=== PATIENT | female | born 1945 | race Caucasian/White ===

== ENCOUNTER 2018-08-05 23:34 | Inpatient (IN) | payer MEDICARE, OTHER ==
--- NOTE | ~2018-08-05 | DS ---
PATIENT:GEN SIMPSON :47 MEDICAL RECORD: [id number] DISCHARGE SUMMARY ADMISSION DATE: 08/05/18 DISCHARGE DATE: 08/09/18 IDENTIFYING DATA: The patient is 72 years old and she was admitted to the hospital on a voluntary basis because of depression. The patient has a known history of depression and has been depressed for a long time. She endorses numerous neurovegetative depressive symptoms. She has also been drinking excessively and tends to minimize this. She was actually arrested for DWI a few weeks ago. Her also a couple of weeks ago. She apparently took an cjpw-shj-zlvgsuk sleep aid that was nonprescription and thought it would hurt her. She had been drinking at that time. She ended up in the Emergency Room at [facility] and endorsed suicidal thoughts. She was subsequently transitioned here for treatment. HOSPITAL COURSE: The patient was admitted to the hospital and evaluated from both a medical, psychological, and social standpoint. She denied suicidal thoughts upon admission and indicated that she had only done what she had done and said what she had said because she had been drinking. She did endorse a lot of depressive symptoms. She was observed for alcohol withdrawal symptoms and did not have any. She was offered inpatient and/or outpatient alcohol treatment and refused it. She was given antidepressant medication and showed some improvement that probably was not related to the medication since it had not had time to become effective, but for whatever reason, probably that she is in a structured environment and is not drinking her mood did improve. At her request, she was subsequently discharged from the hospital since she did not meet criteria for an involuntary hold. DISCHARGE DIAGNOSES: AXIS I: 1. Major depression, severe, recurrent without psychotic features. 2. Alcohol abuse. AXIS II: Deferred. AXIS III: None. AXIS IV: Moderate stressors. AXIS V: Global assessment of functioning is 50. PLAN: At the time of discharge, the patient was referred to a geriatric counseling program at [facility]. This is an outpatient program that takes place several afternoons a week and has intensive group therapy. She is wanting to do this. I think her prognosis is good if she refrains from drinking, which she says she will do. Her prognosis is bad if she returns to drinking. Again, she was offered outpatient or inpatient substance abuse treatment, she refused. She did not show evidence of alcohol withdrawal when she was discharged. TRANSINT:[id number] Voice Confirmation ID: [id number] DOCUMENT ID: [id number] DISCHARGE SUMMARY REPORT [id number] GEN SIMPSON, ANA MENCHACA at 1435 CC: [id number] DICTATION DATE: 08/11/18 1347 NEWSPAPER COLUMNIST: 08/11/18 1357 DIS IN 08/09/18 [place] [id number] [place] [id number]
--- NOTE | ~2018-08-05 | PN ---
PATIENT:GEN SIMPSON MEDICAL RECORD: [id number] LOCATION:AMADEO AbdiJus113 ADMISSION DATE: 08/05/18 PROGRESS NOTE DATE OF SERVICE: 08/09/2018 SUBJECTIVE: The patient's case was discussed with staff. She has no new complaint. OBJECTIVE: The patient is in good behavioral control. She has no thoughts of harming herself or others. She is tolerating her medicines well. I discussed with her the need for outpatient followup and she has been referred to the [facility] treatment program. ASSESSMENT: No change in diagnoses. PLAN: The patient was probably discharged earlier today. Follow up is going to be with her primary care doctor and the outpatient counseling program. She has no problems with the medicine she is taking and is showing no evidence of alcohol withdrawal. I think her outcome is going to be tied to alcohol abstinence. TRANSINT:[id number] Voice Confirmation ID: [id number] DOCUMENT ID: [id number] ANA MEJIA MD at 1234 CC: [id number] DICTATION DATE: 08/09/181917 DAIRY HELPER: 08/09/18 2016 DIS IN 08/09/18 [facility] [address] [place] [address]
--- NOTE | ~2018-08-05 | PN ---
PATIENT:GEN SIMPSON MEDICAL RECORD: [id number] LOCATION:AMADEO Hilario113 ADMISSION DATE: 08/05/18 PROGRESS NOTE DATE OF SERVICE: 08/07/2018 SUBJECTIVE: The patient's case was discussed with staff. She has no new complaint. OBJECTIVE: The patient slept well and has no thoughts of harming herself. She has a very depressed mood and she has responded well to the initial dose of Effexor and Klonopin. She does not appear over sedated nor does she have any alcohol withdrawal symptoms. Today, she is minimizing her alcohol use. ASSESSMENT: No change in diagnoses. PLAN: Supportive and educational interventions were made. I will maintain her current medicines today. I have asked her to consider outpatient geriatric counseling. TRANSINT:[id number] Voice Confirmation ID: [id number] DOCUMENT ID: [id number] ANA MEJIA MD at 1326 CC: [id number] DICTATION DATE: 08/07/18 1257 STERILE PROCESSING TECH: 08/07/18 1315 ADM IN [place] [id number] [place] [id number]
--- NOTE | ~2018-08-05 | PN ---
PATIENT:GEN SIMPSON MEDICAL RECORD: [id number] LOCATION:AMADEO AbdiJus113 ADMISSION DATE: 08/05/18 PROGRESS NOTE DATE OF SERVICE: 08/08/2018 SUBJECTIVE: The patient's case was discussed with staff. She has no new complaint. OBJECTIVE: The patient ate well and slept reasonably well last night. She is showing no evidence of alcohol withdrawal. She is tolerating her Effexor reasonably well. ASSESSMENT: No change in diagnoses. PLAN: Current medicines and therapies have been reviewed and will be maintained. I am going to increase the dose of the patient's Effexor to 50 mg twice daily. I am going to stop her Klonopin and we will monitor her for any withdrawal symptoms. If none are present, I anticipate she can be transitioned out of the hospital tomorrow. TRANSINT:[id number] Voice Confirmation ID: [id number] DOCUMENT ID: [id number] ANA MEJIA MD at 1329 CC: [id number] DICTATION DATE: 08/08/18 1446 AUTOMATIC TOE LASTER: 08/08/18 1451 ADM IN [facility] [address] [place] [address]
--- NOTE | ~2018-08-05 | PSY ---
PATIENT NAME:GEN SIMPSON MEDICAL RECORD: [id number] : 47 LOCATION:[place] [place] ADMISSION DATE: 08/05/18 ACCOUNT: [id number] PSYCHIATRIC EVALUATION DATE OF EVALUATION: 08/06/18 IDENTIFYING DATA: The patient is 72 years old and she is admitted to the hospital on a voluntary basis. CHIEF COMPLAINT: Depression. HISTORY OF PRESENT ILLNESS: The patient is a depressed woman. She has been depressed a long time. She has been unhappy, has felt helpless, hopeless, isolated and withdrawn. She has a loss of interest in usual activities. She has been drinking excessively, which she describes as a fifth of vodka or some other alcohol concentrated weekly. She has an arrest for a DWI few weeks ago and her 2 weeks ago. The patient indicates that she was very unhappy yesterday, wanted to or at least as she puts it go to sleep and not wake up and so she took 8 vckh-vst-auklfmv sleeping pills, which were primarily an antihistamine. She had also been drinking with them. In her mind, she thought that this would be potentially lethal dose, but shortly after taking it, she became afraid and called 911 and was taken to the Emergency Room at [facility]. In her mind, alcohol and a sleep aid, that is only antihistamine, was potentially dangerous, that is why she became afraid and called. So, even though that was not a truly dangerous thing to do, she was frightened enough and felt that she had potentially taken something that was lethal. She was evaluated there neurologically, medically and transferred to us for psychiatric evaluation and treatment. The patient has no thoughts of harming herself today. She denies psychotic symptoms. She acknowledges that she drinks too much. PAST MEDICAL HISTORY: Relatively clean for this elderly woman who has some osteoarthritis, but no chronic medical problems. PAST PSYCHIATRIC HISTORY: Significant for longstanding abuse of alcohol and longstanding problems with depression. She has been on antidepressant medication for about 10 years. FAMILY HISTORY: Negative for psychiatric disease by her report. SOCIAL HISTORY: The patient has been 4 times. Her first 3 marriages ended in divorce, and this last marriage, which has lasted almost 10 years, ended in her being . The history is very atypical. The man she was to was 15 years her senior and had been to her mother until her mother 10 years ago. He was medically debilitated and had COPD and she was his caregiver and then she him. She says that it was not a true marriage in the sense that they were romantically involved, they did not sleep in the same bed, nor was the marriage ever consummated, but she nevertheless was his and she says most of the pain she feels with his passing would be more consistent with how he would feel about the loss of stepfather who had functioned as your father for a long time even though legally she was to him. She has 2 adult children who live in [place]. Both of those children are with her first . She is originally from [place] and lived in [place] and then in [place]. She worked for [employer] for many years and then subsequently moved to [place]. She now is of course retired and even though she is not wealthy, she says she is comfortable and can stay in her home and afford the necessities of life based on what she has and her social security check, so she is not worried about supporting herself in her old age. She does have legal entanglements and was arrested for DWI and that charge is pending, but this is the first time she has ever been arrested. She has never been in any kind of a substance abuse treatment facility and even though she has been treated with antidepressant medicines in the past she has never been hospitalized for mental health reasons. MENTAL STATUS EXAMINATION: The patient is awake, alert and oriented to person, place and somewhat to time and situation. She is very mildly mistaken about the date. Her mood is depressed. Her affect is constricted. Thought processes are circumstantial. Memory, concentration, and abstraction abilities are moderately impaired. She denies any active intent to harm herself or others as well as any overt psychotic symptoms. ASSETS: Supportive family members. LIABILITIES: Limited insight. 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 AXIS II: Deferred. AXIS III: None. AXIS IV: Moderate. AXIS V: Global assessment of functioning is 45. PLAN: At this time, the patient is admitted to the hospital secondary to a suicide attempt. She will be treated with both antidepressant and mood stabilizing medications as deemed appropriate. DT prophylaxis will be observed. She will be given thiamine, folate and a scheduled dose of Klonopin that I will taper. I am also going to change her antidepressant. Her long-term prognosis is guarded. TRANSINT:[id number] Voice Confirmation ID: [id number] DOCUMENT ID: [id number] ANA MEJIA MD at 1326 CC: [id number] DICTATION DATE: 08/06/18 1335 NOISE ABATEMENT ENGINEER: 08/06/18 1427 ADM IN [place] [id number] [place] [id number]
[2018-08-06] MEDS ORDERED: ATIVAN1 MG PO (00:11)
[2018-08-06] MEDS ORDERED: PRISTIQ50 MG PO (00:12)
[2018-08-06 00:23] VITALS: BP 153/81; BMI 29.3
[2018-08-06 06:21] LABS: BASOPHILS 0.5 % (0-2); EOSINOPHILS 1.4 % (0-7); HEMATOCRIT 36.8 % (36.0-48.0); IMMATURE GRANULOCYTES 0.5 % (0-5); LYMPHOCYTES 35.7 % (15-50); MCH 29.3 pg (26.0-34.0); MCHC 32.6 g/dL (31.0-37.0); MEAN PLATELET VOLUME 9.4 fL (7.4-10.4); MONOCYTES 6.6 % (2-11); NEUTROPHILS 55.3 % (40-80); PLATELET COUNT 175 10x3/uL (130-400); RBC 4.09 10x6/uL (4.00-5.40); RDW 16.7 % (11.5-14.5); WBC 4.2 10x3/uL (4.8-10.8)
[2018-08-06 06:57] LABS: ALBUMIN 3.3 g/dL (3.4-5.0); ANION GAP 13.3 mmol/L (8-16); BILIRUBIN - TOTAL 0.74 mg/dL (0.2-1.3); CALCIUM 8.4 mg/dL (8.5-10.1); CARBON DIOXIDE 24.3 mmol/L (21.0-32.0); CREATININE - SERUM 0.9 mg/dL (0.6-1.3); LDL-HDL RATIO 0.9 ratio (1.5-3.5); POTASSIUM - SERUM 4.6 mmol/L (3.5-5.1); PROTEIN - SERUM 6.8 g/dL (6.4-8.2); THYROID STIMULATING HORMONE 4.21 uIU/mL (0.36-3.74)
[2018-08-06 08:00] VITALS: BP 166/100
[2018-08-06 08:35] LABS: APPEARANCE CLEAR (CLEAR); BILIRUBIN NEGATIVE (NEGATIVE); COLOR YELLOW (YELLOW); GLUCOSE NEGATIVE (NEGATIVE); KETONE NEGATIVE (NEGATIVE); NITRITE NEGATIVE (NEGATIVE); PROTEIN NEGATIVE (NEGATIVE); UROBILINOGEN NORMAL (NORMAL)
[2018-08-06 08:37] LABS: WHITE CELLS - URINE 0-5 /hpf (0-5)
[2018-08-06 09:42] VITALS: Wt 72.6 kg
[2018-08-06 20:23] VITALS: BP 124/60
[2018-08-07 08:00] VITALS: BP 143/97
[2018-08-07 19:16] VITALS: BP 167/95
[2018-08-08 06:06] LABS: VITAMIN D 25 HYDROXY 6.1 ng/mL (30.0-100.0)
[2018-08-08 07:00] VITALS: BP 140/112
[2018-08-08 12:12] LABS: FOLATE (FOLIC ACID) - SERUM 8.5 ng/mL (>3.0)
[2018-08-08 19:58] VITALS: BP 160/99
[2018-08-09 07:28] LABS: RAPID PLASMA REAGIN Non Reactive (Non Reactive)
[2018-08-09 08:00] VITALS: BP 143/97
[2018-08-09] MEDS ORDERED: EFFEXOR50 MG PO (10:51)
[2018-08-09] MEDS ORDERED: Vitamin D PO (10:51)
== END 2018-08-09 13:56 | disposition home or self-care (01) | DRG 885 ==
LOC: D.PSYCH 23:34
PROVIDERS: Psychiatry & Neurology Psychiatry
DX: F33.9 Major depressive disorder, recurrent, unspecified (principal); T14.91XA Suicide attempt, initial encounter; T45.0X2A Poisoning by antiallergic and antiemetic drugs, intentional self-harm, initial encounter; T51.0X2A Toxic effect of ethanol, intentional self-harm, initial encounter; F10.10 Alcohol abuse, uncomplicated; E55.9 Vitamin D deficiency, unspecified; R03.0 Elevated blood-pressure reading, without diagnosis of hypertension; Z72.0 Tobacco use

== ENCOUNTER 2019-01-31 22:15 | Inpatient (IN) | payer SELFPAY ==
--- NOTE | ~2019-01-31 | DS ---
PATIENT:GEN SIMPSON :47 MEDICAL RECORD: [id number] DISCHARGE SUMMARY ADMISSION DATE: 01/31/19 DISCHARGE DATE: 02/08/19 IDENTIFYING DATA: The patient is 73 years old and she was admitted to the hospital on a voluntary basis. CHIEF COMPLAINT: Suicidal thoughts. HISTORY OF PRESENT ILLNESS: The patient was intoxicated and had thoughts of harming herself. She called an ambulance and was taken to the hospital Emergency Room where she repeated these statements. The patient was subsequently accepted for treatment here. When she arrived here, she repeated the suicidal statements to the staff. On interview, she endorsed numerous neurovegetative depressive symptoms. She had actually been here previously in the fall of 2017, but that was right after her had . She also had 2 arrests for DWI. She is still drinking, but she has had no more encounters with the police. HOSPITAL COURSE: The patient was admitted to the hospital and evaluated from both a medical, psychological, and social standpoint. She was treated with both mood stabilizing and memory enhancing medications. She tolerated her medications well. She did show improvement and was subsequently referred to outpatient treatment. DISCHARGE DIAGNOSES: AXIS I: Major depression, severe, recurrent without psychotic features, alcohol abuse. AXIS II: Deferred. AXIS III: Osteoarthritis. AXIS IV: Moderate stressors. AXIS V: Global assessment of functioning is 45. PLAN: At the time of discharge, the patient was in good behavioral control and had no active thoughts of harming herself or others. She was tolerating her medications well. Her long-term prognosis is guarded. TRANSINT:[id number] Voice Confirmation ID: [id number] DOCUMENT ID: [id number] ANA MEJIA MD CC: [id number] DICTATION DATE: 02/10/19 1331 PAINT LINE OPERATOR: 02/11/19 0910 DIS IN 02/08/19 [facility] [address] [place] [id number]
[~2019-01-31 22:15] MED LIST: ATIVAN1 MG PO; EFFEXOR50 MG PO; PRISTIQ50 MG PO; Vitamin D PO
[2019-02-01] MEDS ORDERED: ULTRAM50 MG PO (02:38)
[2019-02-01] MEDS ORDERED: ATIVAN1 MG PO (02:39)
[2019-02-01] MEDS ORDERED: MOBIC7.5 MG PO (02:39)
[2019-02-01 05:47] VITALS: BP 160/86; BMI 29.3
--- NOTE | 2019-02-01 07:30 | NUR ---
REC'D PT IN HALLWAY WITH PEERS. ALERT AND ORIENTED. PT DENIES ANY SELF HARM AT THIS TIME. CALM AND COOPERATIVE WITH ASSESSMENT. REDIRECT AND REORIENT NEEDED. PRESCRIBED MEDS PROVIDED. MED COMPLIANT. FALL PRECAUTIONS IN PLACE. WILL CONTINUE TO MONITOR Q 15 MINUTES FOR SAFETY. WILL CPOC.
--- NOTE | 2019-02-01 07:37 | NUR ---
NEW ADMIT TO DOCTOR MEJIA ON [facility] FROM [facility] EMERGENCY ROOM FOR SUICIDE IDEATION. PATIENT STATED IF SHE COULD FIND AN EASY WAY TO KILL HERSELF SHE WOULD. PATIENT HAS BEEN DEPRESSED SINCE HER IN JUNE OF 2018. PATIENT DRANK 1 PINT OF VODKA YESTERDAY. TRANSPORTED VIA EMS TO [facility]. UPON ARRIVAL, PATIENT WAS CALM AND COOPERATIVE WITH CARE AND ADMISSION ASSESSMENTS. CONSENTS TO TREAT SIGNED. PATIENT WISHES TO BE A DNR. CODE WORD IS ASHER. PATIENT DENIES THOUGHTS OF SELF HARM AT THIS TIME. STATED SHE DID WANT TO HER HARM HER SELF YESTERDAY BUT DOES NOT WANT TO ANYMORE.
[2019-02-01 08:23] VITALS: BP 165/96
[2019-02-01 09:34] LABS: BASOPHILS 0.9 % (0-2); EOSINOPHILS 1.1 % (0-7); HEMATOCRIT 38.7 % (36.0-48.0); HEMOGLOBIN 12.4 g/dL (12-16); IMMATURE GRANULOCYTES 0.2 % (0-5); MCH 29.3 pg (26.0-34.0); MCV 91.5 fL (80.0-100.0); MEAN PLATELET VOLUME 9.5 fL (7.4-10.4); MONOCYTES 5.1 % (2-11); NEUTROPHILS 70.7 % (40-80); RBC 4.23 10x6/uL (4.00-5.40); RDW 16.8 % (11.5-14.5); WBC 6.5 10x3/uL (4.8-10.8)
[2019-02-01 09:35] LABS: PLATELET COUNT 257 10x3/uL (130-400)
[2019-02-01 10:10] LABS: ALBUMIN 3.7 g/dL (3.4-5.0); ANION GAP 18.5 mmol/L (8-16); BILIRUBIN - TOTAL 0.76 mg/dL (0.2-1.3); CALCIUM 9.1 mg/dL (8.5-10.1); CARBON DIOXIDE 22.3 mmol/L (21.0-32.0); CREATININE - SERUM 1.1 mg/dL (0.6-1.3); LDL-HDL RATIO 0.9 ratio (1.5-3.5); POTASSIUM - SERUM 4.8 mmol/L (3.5-5.1); PROTEIN - SERUM 7.9 g/dL (6.4-8.2); THYROID STIMULATING HORMONE 4.37 uIU/mL (0.36-3.74)
[2019-02-01 13:53] VITALS: BMI 29.2
[2019-02-01 22:50] VITALS: BP 179/89
[2019-02-02 06:16] LABS: VITAMIN D 25 HYDROXY 6.6 ng/mL (30.0-100.0)
[2019-02-02 07:30] LABS: RAPID PLASMA REAGIN Non Reactive (Non Reactive)
[2019-02-02 08:23] LABS: FOLATE (FOLIC ACID) - SERUM 11.3 ng/mL (>3.0)
[2019-02-02 09:58] VITALS: Wt 72.7 kg
--- NOTE | 2019-02-02 13:03 | PSY ---
PATIENT NAME:GEN SIMPSON MEDICAL RECORD: [id number] : 47 LOCATION:[facility]IE John ADMISSION DATE: 01/31/19 ACCOUNT: [id number] PSYCHIATRIC EVALUATION DATE OF EVALUATION: 02/01/19 IDENTIFYING DATA: The patient is 73 years old and she is known to me from previous clinical contact. CHIEF COMPLAINT: Suicidal thoughts. HISTORY OF PRESENT ILLNESS: The patient was intoxicated, had thoughts of harming herself, called an ambulance and was taken to the hospital Emergency Room where she repeated those statements. The Emergency Room at the other hospital contacted us. We accepted her for admission. When she arrived here, she repeated the suicidal statements to our staff. She now says that she is not suicidal, but she endorses numerous neurovegetative depressive symptoms. This patient was here a year ago, I believe it was July of 2018. At that time, she was having suicidal thoughts, had had 2 arrests for DWI and her had . He apparently in June of 2018. She does not drink every day, but when she does drink, she will drink a pint or more of vodka at one sitting. She will do this in a binge fashion every 2 or 3 days. She is endorsing numerous neurovegetative depressive symptoms. She denies psychotic symptoms or thoughts of harming others. PAST MEDICAL HISTORY: Significant for recent fall in which she broke a left rib. She says this is still uncomfortable. Her medical history is otherwise remarkably clean. PAST PSYCHIATRIC HISTORY: Significant for longstanding alcoholism and depressive symptoms. FAMILY HISTORY: Unknown. SOCIAL HISTORY: The patient is a smoker. She is also a drinker as described above. She has no history of recreational drug use. She has been 3 times and 3 times. More accurately I suppose she has been 4 times, the first 3 ended in divorce, the last marriage lasted about 10 years and ended when he . Of note, the fourth was significantly older than, her had numerous and serious medical problems and was also to this patient's mother. Although, the her mother's who is older than her and ill. It was never a conjugal marriage, but nevertheless they were indeed . She says this was done for some financial reasons, but she has known this man and lived with him for a long time and is devastated by his . Her 2 DWIs from last year have been resolved and she is paid her fines, has done the community service and is on probation. She also has to breathe into a breathalyzer before starting her car. MENTAL STATUS EXAMINATION: The patient is awake, alert and oriented to person, place, time and situation. Her mood is depressed. Her affect is constricted. Thought processes are circumstantial. Memory, concentration, and abstraction abilities are mildly impaired. She denies any intent to harm herself or others as well as any overt psychotic symptoms. ASSETS: Stable living environment. LIABILITIES: Limited insight. DIAGNOSTIC IMPRESSION: AXIS I: 1. Major depression, severe, recurrent without psychotic features. 2. Alcohol abuse. AXIS II: Deferred. AXIS III: Osteoarthritis. AXIS IV: Moderate. AXIS V: Global assessment of functioning 40. PLAN: At this time, the patient is admitted to the hospital secondary to suicidal thoughts. She will be comprehensively evaluated from both a medical, psychological, and social standpoint. She will be treated with both mood stabilizing antidepressant medications as deemed appropriate. Her long-term prognosis is guarded. TRANSINT:[id number] Voice Confirmation ID: [id number] DOCUMENT ID: [id number] ANA MEJIA MD at 1303 CC: [id number] DICTATION DATE: 02/01/19 1504 EQUIPMENT DETAILER: 02/01/19 1532 ADM IN [facility] [address] [place] [id number]
--- NOTE | 2019-02-02 16:06 | NUR ---
IS ORIENTED X 3.DENIES THOUGHTS OF HARMING SELF.AGREES TO TALK TO STAFF IF THOUGHTS OF SELF HARM RETURN.IS COMPLIANT WITH STAFF AND MEDS.TALKS WITH PEERS.WILL CONTINUEWITH PLAN OF CARE,MONITOR FOR CHANGES AND SAFETY.
[2019-02-02 19:56] VITALS: BP 125/85
--- NOTE | 2019-02-03 04:09 | NUR ---
B) Patient is alert and oriented X 3, calm and cooperative, social with peers, denies thoughts of self harm, I) Administered scheduled medications as ordered, monitored for safety, contracts for safety R) mediation compliant,follws unit rules, P) Continue plan of care.
[2019-02-03 09:48] VITALS: BP 129/71
[2019-02-03 10:06] LABS: APPEARANCE HAZY (CLEAR); BACTERIA MANY /hpf (NONE SEEN); BILIRUBIN NEGATIVE (NEGATIVE); COLOR YELLOW (YELLOW); EPITHELIAL CELLS 0-5 /hpf (0-5); GLUCOSE NEGATIVE (NEGATIVE); KETONE NEGATIVE (NEGATIVE); MUCUS <1+ /lpf (NONE SEEN); NITRITE POSITIVE (NEGATIVE); PROTEIN NEGATIVE (NEGATIVE); UROBILINOGEN NORMAL (NORMAL); WHITE CELLS - URINE 0-5 /hpf (0-5)
[2019-02-03 10:37] VITALS: BP 129/71
--- NOTE | 2019-02-03 10:44 | NUR ---
B) The patient is awake and alert, she is pleasant, she denies depression, denies S. I., She says she is good except she wishes she was not here. I) Provide prescribed meds. R) The patient is compliant with meds and she is socializing. P) Continue POC.
--- NOTE | 2019-02-03 13:49 | PN ---
PATIENT:GEN SIMPSON MEDICAL RECORD: [id number] LOCATION:AMADEO AbdiJus112 ADMISSION DATE: 01/31/19 PROGRESS NOTE DATE OF SERVICE: 02/02/2019 SUBJECTIVE: The patient's case was discussed with staff. She has no new complaint. OBJECTIVE: The patient is in good behavioral control. She has limited insight about her condition. She generally tolerates her medicines well. ASSESSMENT: No change in diagnoses. PLAN: Brief supportive and educational interventions were made. Long-term prognosis is guarded. The patient shown no evidence of alcohol withdrawal. She has no interest in inpatient or outpatient substance abuse treatment. She has numerous depressive symptoms and will be given Celexa to treat this condition. TRANSINT:[id number] Voice Confirmation ID: [id number] DOCUMENT ID: [id number] ANA MEJIA MD at 1349 CC: [id number] DICTATION DATE: 02/02/19 1538 MEASUREMENT PSYCHOLOGIST: 02/02/19 2247 ADM IN [place] [id number] [place] [id number]
[2019-02-03 20:15] VITALS: BP 154/94
--- NOTE | 2019-02-04 05:19 | NUR ---
B) Patient is alert and oriented X 3 , calm and cooperaive, follows directions, I) Administered scheduled medications as ordered, assisted with needs, R) Mediation compliant, pleasant and friendly, P) Continue plan of care.
--- NOTE | 2019-02-04 07:31 | NUR ---
B) The patient is awake and alert, she is oriented x3. She denies any depression today. She is socializing with other patients and they are enjoying [employer]. I) Provide prescribed meds. R) The patient is compliant with meds and unit milieu. P) Continue POC.
[2019-02-04 08:12] VITALS: BP 158/84
--- NOTE | 2019-02-04 08:39 | PN ---
PATIENT:GEN SIMPSON MEDICAL RECORD: [id number] LOCATION:AMADEO Hilario112 ADMISSION DATE: 01/31/19 PROGRESS NOTE DATE OF SERVICE: 02/03/2019 SUBJECTIVE: The patient's case was discussed with staff. She has no new complaint. OBJECTIVE: The patient is in good behavioral control. She has limited insight about her condition. ASSESSMENT: No change in diagnoses. PLAN: The patient will be maintained on current medicines. Brief supportive and educational interventions were made. TRANSINT:[id number] Voice Confirmation ID: [id number] DOCUMENT ID: [id number] ANA MEJIA MD at 0839 CC: [id number] DICTATION DATE: 02/03/19 1526 STATE ASSESSED PROPERTIES DIRECTOR: 02/03/19 2048 ADM IN [address] [address]
--- NOTE | 2019-02-04 11:45 | NUR ---
Did take the patient for a walk with four other patients down the hallway, the patient enjoyed the walk, tolerated well.
[2019-02-04 20:00] VITALS: BP 133/91
--- NOTE | 2019-02-05 03:54 | NUR ---
B) Patient is alert and oriented to person, place , and time, calm and cooperative with care and assessment, I) Administered scheduled medications as ordered, monitored for safety, PRN Tylenol 500 mg PO given for headache at 01:04 R) Mediation compliant, pleasant and social with staff and peers, P) Continue plan of care.
--- NOTE | 2019-02-05 07:54 | NUR ---
B) The patient is awakened for an EKG. She is calm and pleasant. She says she slept better last night and she was able to go to bed earlier last night. She is sitting in the hallway this am socializing. I) Provide prescribed meds. R) The patient is compliant with meds and unit milieu. P) Continue POC.
[2019-02-05 08:00] VITALS: BP 112/77
--- NOTE | 2019-02-05 09:40 | NUR ---
The patient is c/o diarrhea x 1, denies cramping. Called Dr. Mcginnis, received Imodium 2 mg PO q 6 hours prn.
--- NOTE | 2019-02-05 09:59 | NUR ---
Provided the patient Imodium 2 mg PO now for her c/o diarrhea.
--- NOTE | 2019-02-05 11:00 | NUR ---
REPORT RECEIVED AND CARE ASSUMED. SITTING IN CHAIR WATCHING A MOVIE.
--- NOTE | 2019-02-05 11:37 | PN ---
PATIENT:GEN SIMPSON MEDICAL RECORD: [id number] LOCATION:AMADEO Hilario112 ADMISSION DATE: 01/31/19 PROGRESS NOTE DATE OF SERVICE: 02/04/2019 SUBJECTIVE: The patient's case was discussed with staff. She has no new complaint. OBJECTIVE: The patient slept well. She is eating well also. She has a depressed mood, but no thoughts of self-harm. She is tolerating her medicines well. ASSESSMENT: Major depression. PLAN: Brief supportive and educational interventions were made. Long-term prognosis is guarded. TRANSINT:[id number] Voice Confirmation ID: [id number] DOCUMENT ID: [id number] ANA MEJIA MD at 1137 CC: [id number] DICTATION DATE: 02/04/19 0840 REGULATORY TECHNICIAN: 02/04/19 0850 ADM IN [place] [id number] [place] [address]
[2019-02-05 19:28] VITALS: BP 168/95
--- NOTE | 2019-02-05 21:38 | NUR ---
PATIENT IS AAOX3, GOOD AFFECT, INTERACTS WELL WITH PEERS, NO ADVERSE REACTION TO MEDS, ABLE TO MAKE NEEDS KNOWN, WILL FOLLOW POC
--- NOTE | 2019-02-06 07:57 | NUR ---
IMMODIUM 2 MG PO GIVEN FOR LOOSE STOOLS.
--- NOTE | 2019-02-06 09:00 | NUR ---
RECEIVED IN HALLWAY WITH PEERS. AWAKE AND ALERT X3, CALM AND COOPERATIVE WITH CARE AND ASSESSMENT. COMPLIANT WITH MEDS PROVIDED. FALL PRECAUTIONS MAINTAINED. WILL CONTINUE POC.
--- NOTE | 2019-02-06 15:58 | PN ---
PATIENT:GEN SIMPSON MEDICAL RECORD: [id number] LOCATION:[facility] ADMISSION DATE: 01/31/19 PROGRESS NOTE DATE OF SERVICE: 02/05/2019 SUBJECTIVE: The patient's case was discussed with staff. She has no new complaint. OBJECTIVE: The patient has a depressed mood, but no thoughts of self-harm. She is eating marginally adequately. She discusses some realistic plans that would hopefully make her more engaged with other persons after discharge. ASSESSMENT: Major depression. PLAN: The patient will be treated with current medicines. I am going to increase the dose of the Celexa to 20 mg daily. Celexa is being used to treat her depressive symptoms. Her long-term prognosis is guarded. TRANSINT:[id number] Voice Confirmation ID: [id number] DOCUMENT ID: [id number] ANA MEJIA MD at 1558 CC: [id number] DICTATION DATE: 02/05/19 1143 ETHNIC ORIGINS TEACHER: 02/05/19 1201 ADM IN [place] [id number] [place] [id number]
[2019-02-06 20:54] VITALS: BP 120/80
--- NOTE | 2019-02-06 21:52 | NUR ---
RECEIVED IN DAYROOM. SITTING IN CHAIR AND WATCHING TV WITH PEERS AT HER SIDE. CALM AND COOPERATIVE WITH CARE AND ASSESSMENT. DENIES THOUGHTS OF SELF HARM. REDIRECT AND REORIENT NEEDED. GETTING READY FOR BED AT THIS TIME. CONTINUE PLAN OF CARE.
[2019-02-07 08:30] VITALS: BP 101/71
--- NOTE | 2019-02-07 09:00 | NUR ---
REPORT RECEIVED AND CARE ASSUMED. AWAKE AND ALERT, CALM AND COOPERATIVE WITH CARE AND ASSESSMENT. PROVIDE PRESCRIBED MEDS. DENIES ANY SELF HARM. WILL CONTINUE PLAN OF CARE.
--- NOTE | 2019-02-07 09:56 | NUR ---
Nutrition Follow Up: Chart reviewed. Pt is eating 76% meal avg on a regular diet. +BM 02/03/19. Meds and labs reviewed. Pt continues at low nutritional risk. RD following.
--- NOTE | 2019-02-07 12:58 | PN ---
PATIENT:GEN SIMPSON MEDICAL RECORD: [id number] LOCATION:[facility] ADMISSION DATE: 01/31/19 PROGRESS NOTE DATE OF SERVICE: 02/06/2019 SUBJECTIVE: The patient's case was discussed with staff. She has no new complaint. OBJECTIVE: The patient denies intent to harm herself or others. She tolerates her medicines well. She has had no evidence of alcohol withdrawal. ASSESSMENT: No change in diagnoses. PLAN: The patient will be given trazodone to assist with sleep consolidation. She will be monitored for clinical changes associated with its use. Her long-term prognosis is guarded. TRANSINT:[id number] Voice Confirmation ID: [id number] DOCUMENT ID: [id number] ANA MEJIA MD at 1258 CC: [id number] DICTATION DATE: 02/06/19 1621 FUEL CONVERSION TECHNICIAN: 02/06/19 1851 ADM IN [facility] [address] [place] [address]
[2019-02-07] MEDS ORDERED: LEVOFLOXACIN500 MG PO (19:12)
[2019-02-07] MEDS ORDERED: CELEXA20 MG PO (19:13)
[2019-02-07] MEDS ORDERED: FLORAJEN3 CAPS460 MG PO (19:13)
[2019-02-07] MEDS ORDERED: DESERYL PO (19:13)
[2019-02-07] MEDS ORDERED: VITAMIN D5000 UNIT PO (19:14)
[2019-02-07] MEDS ORDERED: LEVOXYL100 MCG PO (19:14)
[2019-02-07] MEDS ORDERED: VITAMIN B-121000 MCG PO (19:16)
[2019-02-07] MEDS ORDERED: VITAMIN B-1100 M1 PO (19:17)
[2019-02-07] MEDS ORDERED: FOLIC ACID1 MG PO (19:17)
[2019-02-07 19:58] VITALS: BP 136/82
--- NOTE | 2019-02-08 04:25 | NUR ---
B) Patient is alert and oriented calm and cooperative, follows unit sanjayidav, I) Administered scheduled medicaions as ordered, monitored for safety R) Mediation compliant, leaving tomorrow, P) Continue plan of care.
[2019-02-08 08:30] VITALS: BP 105/71
--- NOTE | 2019-02-08 09:00 | NUR ---
RECEIVED IN DAYROOM, SOCIALIZING WITH PEERS. CALM AND COOPERATIVE WITH CARE AND ASSESSMENT. ADMINISTERED PRESCRIBED MEDICATIONS. COMPLIANT WITH MEDICATIONS, REDIRECT NEEDED. WILL CONTINUE POC.
--- NOTE | 2019-02-08 14:00 | NUR ---
DISCHARGED HOME WITH FRIEND, JOSE VIA PRIVATE CAR. DICHARGE PACKET AND BELONGINGS GIVEN TO PATIENT.
--- NOTE | 2019-02-08 16:32 | PN ---
PATIENT:GEN SIMPSON MEDICAL RECORD: [id number] LOCATION:[id number] ADMISSION DATE: 01/31/19 PROGRESS NOTE DATE OF SERVICE: 02/07/2019 SUBJECTIVE: The patient's case was discussed with staff. She has no new complaint. OBJECTIVE: The patient is fully oriented. She has no thoughts of harming herself or others. She is participating in treatment well. She slept well last night with the addition of trazodone, which she likes and would like to continue to take at home. I have explained the proper use of this and its relative risk and benefits including the dangerous nature of taking too much with regard to a cardiac arrhythmia. She has no thoughts of self-harm. ASSESSMENT: 1. Major depression. 2. Alcohol abuse. PLAN: The patient shows no evidence of alcohol withdrawal. Her mood has improved and I am going to discharge her tomorrow. She does not want to go to any kind of a traditional substance abuse program, but she does say that she will try [facility] and our social work coordinator is going to give her that information. wet room worker is also referring her to the [facility] outpatient counseling program. Followup will be with her primary care physician. TRANSINT:[id number] Voice Confirmation ID: [id number] DOCUMENT ID: [id number] ANA MEJIA MD at 1632 CC: [id number] DICTATION DATE: 02/07/191920 TABLE GAMES DEALER: 02/08/19 0103 ADM IN [facility] [address] [place] [address]
--- NOTE | 2019-02-09 15:31 | PN ---
PATIENT:GEN SIMPSON MEDICAL RECORD: [id number] [facility]ATION[facility] ADMISSION DATE: 01/31/19 PROGRESS NOTE DATE OF SERVICE: 02/08/2019 SUBJECTIVE: The patient's case was discussed with staff. She has no new complaint. OBJECTIVE: The patient is in good behavioral control. She has limited insight about her condition. She has no thoughts of harming herself or others. ASSESSMENT: Major depression. PLAN: At this time, the patient will be transitioned out of the hospital. She has a good understanding of her outpatient treatment plan and had a role in its formulation. TRANSINT:[id number] Voice Confirmation ID: [id number] DOCUMENT ID: [id number] ANA MEJIA MD at 1531 CC: [id number] DICTATION DATE: 02/08/191657 MEDIA SERVICES SPECIALIST: 02/08/191942 DIS IN 02/08/19 [facility] [address] [place] [address]
== END 2019-02-08 14:00 | disposition home or self-care (01) | DRG 885 ==
LOC: D.PSYCH 22:15
PROVIDERS: ADMIT Psychiatry & Neurology Psychiatry; ATTEND Psychiatry & Neurology Psychiatry
DX: F33.2 Major depressive disorder, recurrent severe without psychotic features (principal); R45.851 Suicidal ideations; N39.0 Urinary tract infection, site not specified; M19.90 Unspecified osteoarthritis, unspecified site; F10.10 Alcohol abuse, uncomplicated; E55.9 Vitamin D deficiency, unspecified; E53.8 Deficiency of other specified B group vitamins; J06.9 Acute upper respiratory infection, unspecified; E03.9 Hypothyroidism, unspecified; R73.9 Hyperglycemia, unspecified; Z72.0 Tobacco use